=== PATIENT | female | born 1970 | race Caucasian/White ===

== ENCOUNTER 2016-04-28 10:54 | Emergency (ER) | payer OTHER ==
[~2016-04-28] VITALS: Ht 154.9 cm; Wt 75.0 kg
[~2016-04-28 10:54] MED LIST: ACET325C PO; AZEL205. NS; BENEDRYL PO; BUSP30TA2 PO; CETI10CA PO; DULO60CA42 PO; FLUT9.9S NS; KEN1O TP; KLO1T PO; LEVA0.6319 IH; LEVA15HF5 IH; LURA40TA3 PO; PANT40TA2 PO; SALM50DI IH; SUDAFED PO; TRAZ-118 PO; [UNRECOGNIZED DRUG - CODE] PO; immune globulin IV
[2016-04-28 10:56] VITALS: BP 155/84; PULSE 117; RESP 22; O2SAT 92
--- NOTE | 2016-04-28 11:00 | ED.REPORT ---
HPI-Extremity Problem Upper Date of Service Apr 28, 2016 ED Provider: History of Present Illness: slipped on stairs and cut right arm, has skin tear, long hx of prednisone use. Happened 20 minutes ago. primary care is dr. Hayes. asthma/copd. did not fall Nursing Notes Stated Complaint: RIGHT ARM LACERATION/FELL Chief Complaint: Extremity Trauma Nursing Notes Reviewed: Yes Allergies: Coded Allergies: Cephalosporins (Verified Allergy, Severe, ANAPHYLAXSIS, 01/19/16) ibuprofen (Verified Allergy, Severe, RASH BREATHING PROBLEMS, 01/19/16) iodine (Verified Allergy, Severe, BLISTERS, 01/19/16) latex (Verified Allergy, Severe, BLISTER/WELTS, 01/19/16) oxycodone (Verified Allergy, Severe, RASH, 01/19/16) TAPE (Verified Allergy, Intermediate, SKIN REACTION, 01/23/16) aspirin (Verified Allergy, Unknown, UNKNOWN, 01/19/16) imipenem (Verified Allergy, Unknown, UNKNOWN, 01/19/16) Serotonin 5HT-3 Antagonists (Verified Adverse Reaction, Severe, DILATED PUPILS, 01/19/16) Uncoded Allergies: SULFA (Allergy, Severe, ANAPHYLAXSIS- RESPIRATORY, 01/19/16) WOOL (Allergy, Severe, HIVES, 01/19/16) CILASTIN SODIUM (Allergy, Unknown, UNKNOWN, 01/19/16) NYLON (Allergy, Unknown, UNKNOWN, 01/19/16) Scheduled ([immune globulin]) IV [id number] ([Sudafed 12HOUR]) 120 MG PO BID Azelastine HCl (Astepro) 205.5 Mcg/0.137 Ml [place].pump 205.5 MCG NS BID Buspirone (Buspirone) 30 Mg Tablet 60 MG PO BID Cetirizine HCl (Zyrtec) 10 Mg Capsule 10 MG PO HS Duloxetine (Cymbalta) 60 Mg Capsule.dr 60 MG PO DAILY Lurasidone (Latuda) 40 Mg Tablet 40 MG PO DAILY Pantoprazole DR (Protonix) 40 Mg Tablet 40 MG PO BID Salmeterol Xinafoate (Serevent Diskus) 50 Mcg/Puff Inhaler 1,400 MCG IH BID Theophylline Anhydrous ER (Theophylline Anhydrous ER) 300 Mg Tab.er.12h 300 MG PO DAILY Trazodone (Trazodone) 100 Mg Tablet 200 MG PO HS Triamcinolone Acet (Triamcinolone Acetonide Ointment) 1 Applic/0.25 Gm Oint 1 APPLIC TP BID 0.05% Scheduled PRN ([Benedryl]) 25-50 MG PO Q4-6H PRN PRN PRN Acetaminophen (Acetaminophen) 325 Mg Capsule 3 CAPSULE PO BID PRN PRN PRN Clonazepam (Clonazepam) 1 Mg Tablet 1 MG PO TID PRN PRN For Anxiety Fluticasone Propionate (Flonase Allergy Relief) 50 Mcg/Actuation [place].susp 9.9 ML NS BID PRN PRN PRN Levalbuterol HCl (Xopenex) 0.63 Mg/3 Ml Vial.neb 0.63 MG IH q4-6h PRN PRN For Shortness of Breath Levalbuterol Tartrate (Xopenex Hfa) 15 Gm Hfa.aer.ad 1 PUFF IH Q4 PRN PRN For Shortness of Breath General Time Seen by MD: 10:59 Chief Complaint Forearm injury right Hx Obtained From: Patient Onset Occurred: Just prior to arrival Caused by: Accidental Context: Occurred at: Home injury Past Medical History Past Medical History Notes: Dr. Nielson, Dr. Garrett, [facility] Past Medical History Reports: Asthma, COPD Smoking History Never Smoker Social History Alcohol Use: "Social" Drug Use: Denies drug use Other Social History: Good social support, Occupation lives with , no work or school 04/28/2016 Ambulatory Status Independent Review of Systems Basic Review of Systems Eyes: Vision NL, No discharge ENT: Hearing NL, No pain, No nasal congestion, No pharyngeal pain Respiratory: No shortness of breath, No cough, No wheeze Cardiovascular: No chest pain, No dyspnea on exertion, No orthopnea, No parox noct dyspnea, No palpitations GI: No abdominal pain, No anorexia, No nausea, No vomiting : No dysuria, No frequency Hematologic: No bleeding, No bruising Endocrine: No cold intolerance, No heat intolerance, No weight gain, No weight loss Allergy / Immune: No allergy Psychiatric: Normal thought content Physical Exam Initial Vital Signs Vital Signs (First) Date Time Temp Pulse Resp B/P Pulse Ox O2 Delivery O2 Flow Rate FiO2 04/28/16 10:56 36.4 117 22 155/84 92 Room Air Initial VS: Reviewed, Vital signs abnormal General/Constitutional: Well-developed, Well-nourished Head / Eyes: Atraumatic, Normocephalic, PERRL ENT: Mucous membranes moist, Conjunctiva normal, No scleral icterus Neck: Supple, Non-tender, Full range of motion Respiratory: Breath sounds normal, Clear to auscultation, No respiratory distress Cardiovascular: Regular rate & rhythm, Heart sounds normal, Intact distal pulses Abdomen / GI: Soft, Non-tender, No guarding, No rebound, No distention Back: No CVA tenderness Lymphatic: No lymphadenopathy Lower Extremities: Vascular intact, Neuro intact, No swelling, No tenderness Skin: Warm, Dry, No cyanosis Neurologic: Alert, Oriented, Nonfocal Psychiatric: Mood/affect normal, Behavior normal, Normal thought content General/Constitutional: Awake, Alert, No acute distress Appearance / Presentation: Positive: Appears older than age Neck: Atraumatic, Supple, No meningismus, Full range of motion Respiratory / Chest: Atraumatic, Breath sounds NL, Breath sounds = bilat, No respiratory distress Cardiovascular: Heart rate NL, Regular rhythm, Heart sounds NL, No gallop 12 cm skin tear on inner aspect of right lower arm. No active bleeding. sensation intact distally cap refill less than 2 sec Procedures Laceration Management Laceration Management: steri strips placed at edges of wound to hold sutures in place Time: 11:30 Procedure Performed by: Allied health pract Consent / Setup / Site Prep: Informed consent provided, Consent from patient , Hand hygiene observed, Stand sterile technique Location of Wound: iright inner aspect of lower forearm Wound Length: 12 cm Local Anesthesia: Lidocaine 1%, 5cc (8), 27g needle Digital Block: No Wound Preparation: Normal saline Debridement: None Irrigation: 250 cc Undermining / Margins: Flaps aligned Repair Skin: ___ O (5), Nylon # Sutures - Skin: 10 Closure Layers: 1 Suture Technique: Simple, Mattress Post-Procedure / Complications: Antibiotic oint applied, Dressing applied, No complications, Condition improved, Tolerated procedure well, Patient stable Re-Eval/Medical Decision Med Decision/Clinical Course wound closed without difficulty Discharge & Departure Impression: Primary Impression: Skin tear of right forearm without complication Encounter type: initial encounter Qualified Code: S51.801A - Unspecified open wound of right forearm, initial encounter Disposition: Home Patient Instructions: Laceration (ED) Additional Instructions: The skin tear was quite extensive. It has been repaired with steri strips and sutures. It may take 3 or 4 weeks for the skin to heal. Apply bacitracin to the site of the laceration. Use a non stick dressing to cover the wound and wrap. You are up to date on your tdap. With allergies of cephalosporin and sulfa, doxycycline is a good alternative. Start 100 mg in the am and pm for 10 days. Return in 10 to 14 days for a wound recheck, sooner with any concerns. The sutures likely will not be able to be removed at that visit but a wound check is in order. Continue with your regular medication. You have been provided enough dressing supplies for a few days till [facility] can open. Please enjoy your new home. Referrals: Richard Cuhng MD (PCP) EDSupervising Provider for APC: Ronaldo Diggs DO copies to: Richard Chung MD, Sue ARNP Apr 28, 2016 11:00
[2016-04-28 12:27] VITALS: BP 145/78; PULSE 99; RESP 22; O2SAT 93
== END 2016-04-28 12:28 | disposition home or self-care (01) ==
LOC: SED 10:54
DX: S51.811A Laceration without foreign body of right forearm, initial encounter (principal); W18.43XA Slipping, tripping and stumbling without falling due to stepping from one level to another, initial encounter; Y93.01 Activity, walking, marching and hiking; Y99.8 Other external cause status; Y92.018 Other place in single-family (private) house as the place of occurrence of the external cause; J45.909 Unspecified asthma, uncomplicated; Z79.51 Long term (current) use of inhaled steroids; Z88.1 Allergy status to other antibiotic agents; Z88.6 Allergy status to analgesic agent; Z88.5 Allergy status to narcotic agent; Z88.2 Allergy status to sulfonamides

== ENCOUNTER 2016-11-20 18:09 | Observation (INO) | payer OTHER ==
[2016-11-19 17:40] VITALS: BP 135/90; PULSE 104; RESP 18; O2SAT 93
[~2016-11-20] VITALS: Ht 154.9 cm; Wt 75.1 kg
[2016-11-20 18:16] VITALS: BP 144/101; PULSE 109; RESP 18; O2SAT 95
--- NOTE | 2016-11-20 18:27 | ED.REPORT ---
HPI-Dyspnea / Wheezing Date of Service Nov 20, 2016 ED Provider: Stalin Sun MD Patient is a 46 year old female with a history of COPD and asthma as a consequence of repeated sinopulmonary infections, hypertension and chronic bronchitis who presents to the ED due to a low O2 sat reading of 89%. She states that she does feel a little more short of breath today compared to usual but she hasn't used her rescue inhaler today. Patient reports that her oxygen baseline is normally around 92%. The patient was originally seen at for right ear pain that has been present for 2 days. Patient denies chest pain, leg swelling, palpitations or diaphoresis. She has had a cough with green sputum for the past month and has been taking antibiotics. The patient states that she feels like her symptoms are improving. Nursing Notes Stated Complaint: SHORT OF BREATH Chief Complaint: Respiratory Complaints Nursing Notes Reviewed: Yes (Lumidigm, [employer]cr[employer] not reconciled) Allergies: Coded Allergies: Cephalosporins (Verified Allergy, Severe, ANAPHYLAXSIS, 01/19/16) ibuprofen (Verified Allergy, Severe, RASH BREATHING PROBLEMS, 01/19/16) iodine (Verified Allergy, Severe, BLISTERS, 01/19/16) latex (Verified Allergy, Severe, BLISTER/WELTS, 01/19/16) oxycodone (Verified Allergy, Severe, RASH, 01/19/16) TAPE (Verified Allergy, Intermediate, SKIN REACTION, 01/23/16) levofloxacin (Verified Allergy, Mild, Tendonitis, 11/20/16) aspirin (Verified Allergy, Unknown, UNKNOWN, 01/19/16) imipenem (Verified Allergy, Unknown, UNKNOWN, 01/19/16) Serotonin 5HT-3 Antagonists (Verified Adverse Reaction, Severe, DILATED PUPILS, 01/19/16) Uncoded Allergies: SULFA (Allergy, Severe, ANAPHYLAXSIS- RESPIRATORY, 01/19/16) WOOL (Allergy, Severe, HIVES, 01/19/16) CILASTIN SODIUM (Allergy, Unknown, UNKNOWN, 01/19/16) NYLON (Allergy, Unknown, UNKNOWN, 01/19/16) Scheduled ([immune globulin]) IV [id number] ([Sudafed 12HOUR]) 120 MG PO BID Azelastine HCl (Astepro) 205.5 Mcg/0.137 Ml [place].pump 205.5 MCG NS BID Buspirone (Buspirone) 30 Mg Tablet 60 MG PO BID Cetirizine HCl (Zyrtec) 10 Mg Capsule 10 MG PO HS Duloxetine (Cymbalta) 60 Mg Capsule.dr 60 MG PO DAILY Lurasidone (Latuda) 40 Mg Tablet 40 MG PO DAILY Pantoprazole DR (Protonix) 40 Mg Tablet 40 MG PO BID Salmeterol Xinafoate (Serevent Diskus) 50 Mcg/Puff Inhaler 1,400 MCG IH BID Theophylline Anhydrous ER (Theophylline Anhydrous ER) 300 Mg Tab.er.12h 300 MG PO DAILY Trazodone (Trazodone) 100 Mg Tablet 200 MG PO HS Triamcinolone Acet (Triamcinolone Acetonide Ointment) 1 Applic/0.25 Gm Oint 1 APPLIC TP BID 0.05% Scheduled PRN ([Benedryl]) 25-50 MG PO Q4-6H PRN PRN PRN Acetaminophen (Acetaminophen) 325 Mg Capsule 3 CAPSULE PO BID PRN PRN PRN Clonazepam (Clonazepam) 1 Mg Tablet 1 MG PO TID PRN PRN For Anxiety Fluticasone Propionate (Flonase Allergy Relief) 50 Mcg/Actuation [place].susp 9.9 ML NS BID PRN PRN PRN Levalbuterol HCl (Xopenex) 0.63 Mg/3 Ml Vial.neb 0.63 MG IH q4-6h PRN PRN For Shortness of Breath Levalbuterol Tartrate (Xopenex Hfa) 15 Gm Hfa.aer.ad 1 PUFF IH Q4 PRN PRN For Shortness of Breath General Time Seen by MD: 18:23 Chief Complaint Shortness of breath Hx Obtained From: Patient Arrived By: Walk-in Sudden in Onset?: Yes Onset Occurred: 5 - 8 hours ago Symptom Duration: Since onset Severity: Current: No pain currently Recent Healthcare: No recent hospitalization, Recent doctor visit Similar Sx Previous: Yes Past Medical History Past Medical History Notes: Dr. Nielson, Dr. 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 Breast CA (DCIS), status post lumpectomy and radiation History of chronic major depression General anxiety disorder GERD History of struck sleep apnea Reports: Asthma, COPD Past Surgical History Port-A-Cath Hysterectomy Abdominal and groin hernia repairs Tonsillectomy Sinus surgery as child Smoking History Never Smoker Social History Alcohol Use: "Social" Drug Use: Denies drug use Other Social History: Occupation lives with , no work or school 04/28/2016 Ambulatory Status Independent Review of Systems Constitutional: Denies: Chills, Fever Ears / Nose / Throat: Reports: Earache right Respiratory: Reports: Prod cough, green, Shortness of breath Cardiovascular: Denies: Chest pain, Palpitations Musculoskeletal: Denies: Extremity swelling Skin: Denies Diaphoresis, Denies Itching, Denies Rash Complete sys rev & neg: except as marked. GI: Denies: Nausea Neurologic: Denies: Lightheaded, Numbness, Weakness Physical Exam Initial Vital Signs Vital Signs (First) Date Time Temp Pulse Resp B/P Pulse Ox O2 Delivery O2 Flow Rate FiO2 11/20/16 18:16 36.4 109 18 144/101 95 Nasal Cannula 3 Initial VS: Reviewed General/Constitutional: Awake, Alert appears cushingoid Neck: Atraumatic, Supple Respiratory / Chest: Atraumatic, No respiratory distress few scattered wheezes diminished breath sounds not severely dyspneic Cardiovascular: Regular rhythm, Heart sounds NL Heart Rate / Rhythm: Positive: Tachycardia (patient states that she has baseline tachycardia) ENT: Atraumatic, Airway patent, Mucous membranes moist, Tympanic membs NL Lower Extremity / Pelvis / MS: Atraumatic, Inspection NL, No edema Skin: Atraumatic, Color NL, No rash, Warm, Dry Neurologic: Oriented X3, Speech NL, No motor deficits, No sensory deficits Psychiatric: Affect NL, Mood NL Interpretation & Diagnostics Lab Results Interpretation Result Diagram: 11/20/16193911/20/161939 Test 11/20/16 15:34 11/20/16 19:40 D-Dimer 0.70mg/L FEU (<0.50) White Blood Count 12.7th/mm3 (3.8-10.1) Red Blood Count 4.69mil/mm3 (3.90-5.20) Hemoglobin 14.7g/dL (12.0-15.6) Hematocrit 45.7% (35.0-46.0) Mean Corpuscular Volume 97.4fL (81-100) Mean Corpuscular Hemoglobin 31.3pg (27.0-35.0) Mean Corpuscular Hemoglobin Concent 32.2% (32.0-37.0) Red Cell Distribution Width 15.6% (12.3-15.4) Platelet Count 502bil/L (150-400) Neutrophils (%) (Auto) 66.7% (40-74) Lymphocytes (%) (Auto) 20.8% (14-46) Monocytes (%) (Auto) 11.0% (4-12) Eosinophils (%) (Auto) 0.7% (0-5) Basophils (%) (Auto) 0.2% (0-3) Sodium Level 136mEq/L (134-144) Potassium Level 4.0mEq/L (3.5-5.2) Chloride Level 98mEq/L (97-108) Carbon Dioxide Level 24mmol/L (18-29) Blood Urea Nitrogen 14mg/dL (6-24) Creatinine 0.59mg/dL (0.57-1.00) Estimat Glomerular Filtration Rate 156mL/min (>59) Glucose Level 102mg/dL (60-99) Lactic Acid Level 2.0mmol/L (0.4-2.0) Calcium Level 9.2mg/dL (8.5-10.1) Total Bilirubin 0.2mg/dL (0.0-1.2) Aspartate Amino Transf (AST/SGOT) 27U/L (0-50) Alanine Aminotransferase (ALT/SGPT) 31U/L (0-32) Alkaline Phosphatase 86U/L (25-150) Troponin T < 0.010ug/L (0.0-0.011) Total Protein 7.9g/dL (6.4-8.4) Albumin 3.8g/dL (3.4-5.0) Lab Results Interpretation: CBC mild leukocytosis CMP normal D-dimer positive including age-adjusted ECG Interpretation ECG Interpretation: sinus tachycardia, rate 106 no ischemic changes tachycardia is new compared to prior EKG from 2006 Time: 18:59 Interpreted by: ED physician X-Ray Chest Interpretation Chest Xray Interpretation: IMPRESSION: No acute disease. No interval change Dictated by: Abraham Montoya M.D. on 11/20/2016 at 19:05 Approved by: Abraham Montoya M.D. on 11/20/2016 at 19:05 View: Portable, 1 view Interpretation / Wet Read by: Interpret - Radiologist Re-Eval/Medical Decision Med Decision/Clinical Course This is a pleasant 46-year-old female with chronic lung disease and immunosuppression on meropenem for the past month getting daily infusions, went to urgent care for some ear fullness-not pain-and was noted to have an O2 sat of 89% on room air, which is lower than her baseline of 1993%, so she was sent to the ED for further evaluation. The patient denies a change in baseline shortness of breath, denies fevers, chills, chest pain, pleuritic discomfort. Urgent care was concerned regarding the possibility of a DVT/PE as the patient has been immobilized from a tendinopathy attributed to fluoroscopy quinolone use , just discontinue the boot 2 days ago. She did note she had some swelling in the legs about 6 weeks ago, but does not have any now. She does not have a previous history of DVT or PE. She has no additional complaints. She appears chronically short of breath, mildly Cushinoid from history of steroid use-on the she is not on steroids at the moment. She is tachycardic at 1:15 as well, and she claims she baseline heart rates around 105. She is not febrile. Chest x-ray was read by the radiologist as no change. Blood work reveals a nonspecific leukocytosis. Troponins normal. I did not draw cultures as the patient's on IV meropenem. There was a lab delay on the D dimer, but it is ultimately positive. This point with the patient's underlying lung disease, risk factors plan was a CT angiogram-but it turns out the patient has a mild iodine allergy was itching and hives. Her for, given the hypoxic, tachycardic patient with risk factors-the plan is initiation of the protocol by radiology for patients with allergic reactions, which read a 13 hour delay until the CT scan. The plan is empiric treatment with a dose of Lovenox, initiation of the allergy protocol, and observation admission overnight to the CT can be performed in the morning. Source of Hx: Old records Re-Evaluation/Progress : Time of Eval: 22:18 Re-Evaluation/Progress Note: Discussed results and plan for admit. Patient understands and agrees to the plan. All questions were addressed. Consultation : Referral / Consult Name: Tl Hitchcock MD Consulted With: Hospitalist Call Returned at: 22:48 Automatic Vulcanizing Operator: Agrees with eval, Agrees with plan, Accepts admit Counseled Regarding: Diagnosis, Lab results, Need for admission Discharge & Departure Impression: Primary Impression: Hypoxia Additional Impressions: Elevated d-dimer Allergy to iodine Disposition: Home Discharge Condition All VS Reviewed: Yes Condition: Stable Referrals: Richard Chung MD (PCP) Scribe Attestation Portions of this note were transcribed by Cande Zambrano. I, Dr. Sun personally performed the history, physical exam and medical decision-making; I reviewed and confirmed the accuracy of the information in the transcribed note. Signed by: Cande Aviles, 11/20/16 copies to: Richard Chung MD, Matthew F MD Nov 20, 2016 18:27 Shital Zambrano Nov 20, 2016 18:36
[2016-11-20] MEDS ORDERED: Albuterol 2.5 mg/3 mL Inhalation Solution NEB ONE (18:35)
[2016-11-20 18:51] VITALS: PULSE 106; RESP 22; O2SAT 90
--- NOTE | 2016-11-20 19:07 | DRSVH ---
PROCEDURE: X-RAY CHEST ONE VIEW, PORTABLE ([id number]) INDICATIONS: sob TECHNIQUE: One view of the chest was acquired. COMPARISON: [facility], CR, XR CHEST 2VW, 08/01/2016, 19:29. FINDINGS: Surgical changes and devices: Right chest port with its tip projecting in the mid SVC. Lungs and pleura: No pleural effusions or pneumothorax. Lungs are clear. Elevation of the right he midiaphragm. Scattered scarring/atelectasis. Mediastinum: Mediastinal contours appear normal. Heart size is normal. Bones and chest wall: No suspicious bony lesions. Overlying soft tissues appear unremarkable. IMPRESSION: No acute disease. No interval change Dictated by: Abraham Montoya M.D. on 11/20/2016 at 19:05 Approved by: Abraham Montoya M.D. on 11/20/2016 at 19:05
[2016-11-20 19:45] LABS: BASOPHILS % (AUTO) 0.2 % (0-3); EOSINOPHILS % (AUTO) 0.7 % (0-5); Mean Corpuscular Hemoglobin 31.3 pg (27.0-35.0); Mean Corpuscular Volume 97.4 fL (81-100); NEUTROPHILS % (AUTO) 66.7 % (40-74); Platelet Count 502 bil/L (150-400)
[2016-11-20] MEDS ORDERED: MethylprednisoLONE Sodium Succinate 62.5 mg/mL 2 mL Inj IVPUSH ONE (22:25)
[2016-11-20 22:55] VITALS: BP 120/88; PULSE 110; RESP 24; O2SAT 92
[2016-11-20] MEDS ORDERED: Ondansetron 2 mg/mL 2 mL Inj IVPUSH PRN (22:55)
[2016-11-20] MEDS ORDERED: Alum-Mag Hydrox-Simeth 30 mL Suspension PO PRN ×2 (22:55→23:10)
--- NOTE | 2016-11-20 23:05 | NUR ---
ADMIT Report received from Lore in ED. Pt arrived on unit at 2245. Pt able to ambulate independently to room. Reports little to no SOB, was on 2L before on floor. Cpox applied to pt. Pharmacist in room to complete medication reconciliation. Continuing care.
[2016-11-20] MEDS ORDERED: Polyethylene Glycol (PEG) 17 Gm Powder PO PRN (23:10)
[2016-11-20 23:25] LABS: APPEARANCE,URINE CLEAR (CLEAR,HAZY); COLOR,URINE YELLOW (YELLOW); PH,URINE 5.5 (5.0-8.0)
[2016-11-20 23:26] LABS: OCCULT BLOOD,URINE NEGATIVE (NEGATIVE); UROBILINOGEN,URINE NORMAL (NORMAL)
[2016-11-20] MEDS ORDERED: ALEN70TA2 PO (23:30)
[2016-11-20] MEDS ORDERED: TIOT18CA3 IH (23:30)
[2016-11-20] MEDS ORDERED: FLUT12AE10 IH (23:30)
[2016-11-20] MEDS ORDERED: MERO500V2 IV (23:30)
[2016-11-20] MEDS ORDERED: OLOP2.5D BOTH_EYES (23:30)
[2016-11-20] MEDS ORDERED: ZIT250 PO (23:30)
[2016-11-20] MEDS ORDERED: ACET-171 PO (23:30)
[2016-11-20 23:40] VITALS: BP 149/95; PULSE 102; RESP 20; O2SAT 92
[2016-11-21] VITALS (9 sets, daily range): BP systolic 118–142; BP diastolic 75–90; PULSE 76–115; RESP 16–24; O2SAT 92–97
[2016-11-21] MEDS ORDERED: Meropenem 500 mg Inj IV SCH (00:35)
[2016-11-21] MEDS ORDERED: diphenhydrAMINE 50 mg Capsule PO ONE ×2 (00:45→10:50)
--- NOTE | 2016-11-21 00:53 | NUR ---
BP On admit, BP was 149/95. Pt states BP in normally not that high and does not take BP medications. Spoke with Dr. Fernandez about BP. He said no PRN medications for now because pt was previously low BP, but will trend BP and contact provider if BP continues to be high. Will comply. Hourly rounding.
--- NOTE | 2016-11-21 00:56 | PCM.HPMED ---
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 She was at urgent care for right ear pain that has been present for 2 days, when they noticed O2 sat of 89%, lower than her baseline of 92%. She states that she does feel a little more short of breath today compared to usual but she hasn't used her rescue inhaler today. Of note, the patient has been immobilized from a tendinopathy secondary to quinolone use, which was discontinued about 2 days ago. She mentions she did have swelling in her legs about 6 weeks ago, but no longer has it. She has no prior history of DVT or PE. The patient denies fevers, chills, chest pain, pleuritic discomfort. She has had a cough with green sputum for the past month and has been taking antibiotics. The patient states that she feels like her symptoms are improving. In the ED she was found to be tachycardic with a pulse of 115, though she reports she typically at 105 bpm. WBC 12.7 on meropenem. D-dimer elevated at 0.7 , troponin normal. Chest x-ray was found to be unremarkable. CTA ordered, but patient iodine allergy with itching and hives. Review of Systems: A comprehensive review of systems was conducted with the patient and found to be negative except as above in the History of Present Illness. Allergies Coded Allergies: Cephalosporins (Verified Allergy, Severe, ANAPHYLAXIS, 11/21/16) ibuprofen (Verified Allergy, Severe, RASH BREATHING PROBLEMS, 01/19/16) iodine (Verified Allergy, Severe, HIVES, 11/21/16) latex (Verified Allergy, Severe, BLISTER/WELTS, 01/19/16) oxycodone (Verified Allergy, Severe, RASH, 01/19/16) TAPE (Verified Allergy, Intermediate, SKIN REACTION, ITCHY, 11/21/16) levofloxacin (Verified Allergy, Mild, Tendonitis, 11/20/16) aspirin (Verified Allergy, Unknown, ANAPHYLAXIS, 11/21/16) imipenem (Verified Allergy, Unknown, UNKNOWN, 01/19/16) Serotonin 5HT-3 Antagonists (Verified Adverse Reaction, Severe, DILATED PUPILS, 01/19/16) Uncoded Allergies: SULFA (Allergy, Severe, ANAPHYLAXSIS- RESPIRATORY, 01/19/16) WOOL (Allergy, Severe, HIVES, 01/19/16) CILASTIN SODIUM (Allergy, Unknown, HIVES, 11/21/16) NYLON (Allergy, Unknown, ITCHING, 11/21/16) Home Medications Scheduled ([immune globulin]) IV [id number] ([Sudafed 12HOUR]) 120 MG PO BID Azelastine HCl (Astepro) 205.5 Mcg/0.137 Ml [place].pump 205.5 MCG NS BID Buspirone (Buspirone) 30 Mg Tablet 60 MG PO BID Cetirizine HCl (Zyrtec) 10 Mg Capsule 10 MG PO HS Duloxetine (Cymbalta) 60 Mg Capsule.dr 60 MG PO DAILY Lurasidone (Latuda) 40 Mg Tablet 40 MG PO DAILY Pantoprazole DR (Protonix) 40 Mg Tablet 40 MG PO BID Salmeterol Xinafoate (Serevent Diskus) 50 Mcg/Puff Inhaler 1,400 MCG IH BID Theophylline Anhydrous ER (Theophylline Anhydrous ER) 300 Mg Tab.er.12h 300 MG PO DAILY Trazodone (Trazodone) 100 Mg Tablet 200 MG PO HS Triamcinolone Acet (Triamcinolone Acetonide Ointment) 1 Applic/0.25 Gm Oint 1 APPLIC TP BID 0.05% Scheduled PRN ([Benedryl]) 25-50 MG PO Q4-6H PRN PRN PRN Acetaminophen (Acetaminophen) 325 Mg Capsule 3 CAPSULE PO BID PRN PRN PRN Clonazepam (Clonazepam) 1 Mg Tablet 1 MG PO TID PRN PRN For Anxiety Fluticasone Propionate (Flonase Allergy Relief) 50 Mcg/Actuation [place].susp 9.9 ML NS BID PRN PRN PRN Levalbuterol HCl (Xopenex) 0.63 Mg/3 Ml Vial.neb 0.63 MG IH q4-6h PRN PRN For Shortness of Breath Levalbuterol Tartrate (Xopenex Hfa) 15 Gm Hfa.aer.ad 1 PUFF IH Q4 PRN PRN For Shortness of Breath PMH History of common variable immunodeficiency, on IVIG infusions twice a month, Port-A-Cath COPD/asthma as a consequence repeated sinopulmonary infections 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 Breast CA (DCIS), status post lumpectomy and radiation History of chronic major depression General anxiety disorder GERD History of sleep apnea Reports: Asthma, COPD Surgical History Port-A-Cath Hysterectomy Abdominal and groin hernia repairs Tonsillectomy Sinus surgery as child Family History Father: Diabetes, Hypertension, Heart disease Social History Hx Alcohol Use: No Hx Substance Use: No Hx Tobacco Use: No Smoking Status: Never Smoker Exam Vital Signs Vital Sign - Last Date Time Temp Pulse Resp B/P Pulse Ox O2 Delivery O2 Flow Rate FiO2 11/20/16 22:55 36.8 110 24 120/88 92 Nasal Cannula 2 Exam General: No acute distress, well-developed, well-nourished, appropriately interactive HEENT: Normocephalic, atraumatic. External ears without defect. Anicteric sclerae, moist conjunctivae Neck: Supple with full range of motion. No jugular venous distension. No bruits. No lymphadenopathy or thyromegaly. Cardiovascular: tachycardic, normal rhythm with no murmurs, rubs, or gallops appreciated Pulmonary: Dimished breath sounds, no wheezes, rhonchi or rales. Normal respiratory effort with no use of accessory muscles. Abdomen: Bowel tones present. Soft, nontender, nondistended. No hepatosplenomegaly or masses appreciated. Extremities: No clubbing, cyanosis, edema, or lymphadenopathy appreciated. Skin: Normal temperature, turgor, and texture; no rash, ulcers, or subcutaneous nodules appreciated. Neurological: Cranial nerves grossly intact. Normal muscle strength, tone, and bulk. Reflexes, coordination, and sensory function within normal limits. No known gait impairment. Psychiatric: Normal mood and affect. Alert and oriented to person, place, and time. Lab and Diagnostics Labs Item Value Date Time Troponin T < 0.010 ug/L 11/20/161939 Alkaline Phosphatase 86 U/L 11/20/161939 Alanine Aminotransferase (ALT/SGPT) 31 U/L 11/20/161939 Aspartate Amino Transf (AST/SGOT) 27 U/L 11/20/161939 Lactic Acid Level 2.0 mmol/L 11/20/161939 D-Dimer 0.70 mg/L FEU H 11/20/16 1534 Result Diagram: 11/20/16193911/20/161939 X-Rays, CTs and MRIs PROCEDURE: X-RAY CHEST ONE VIEW, PORTABLE ([id number]) IMPRESSION: No acute disease. No interval change Dictated by: Abraham Montoya M.D. on 11/20/2016 at 19:05 12-lead ECG Sinus tachycardia . 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 Hypoxia, Present on Admission, Active Likely secondary to COPD exacerbation. However differential includes pulmonary embolism. - Iodine allergy protocol initiated, then CTA - Patient recieved methylprednisolone at 2240 on 11/20/16 in ED. Patient to recieve two more doses of prednisone. First dose at 0440, next one at 1040. Patient will need contrast at 1140 for CTA. Imaging has been ordered. - Day team to discuss with radiology timing of around 1140. Common Variable Immunodeficiency, chronic - Patient on daily meropenem will continue Chronic JOSELINE; stable - Usually on BiPAP, ordered Patient Status: Patient is admitted under observation status with expected length of stay less than 2 midnights due to severity of presenting symptoms and risk of adverse event. Code Status: Full Code VTE Prophylaxis: Sub-Q Enoxaparin VTE Mechanical Devices: Intermittant Pneumatic CD Resuscitation Status: CPR: Attempt Resuscitation Attending Statement The patient was seen and examined together with Dr. Fernandez on 11/20 and I agree with the history, exam and plan as outlined in the note above. Tl Fernandez DO Nov 20, 2016 23:15 Tl Hitchcock MD Nov 21, 2016 01:28
[2016-11-21] MEDS: AZELASTINE NASAL SPRAY NASAL SCH ×3 (02:05→20:30)
[2016-11-21] MEDS: BusPIRone 15 mg Dividose Tablet PO SCH ×3 (02:08→20:48)
[2016-11-21] MEDS: OLOPATADINE BOTH_EYES SCH ×2 (02:20→08:30)
[2016-11-21] MEDS ORDERED: Meropenem Inj 1,000 MG in 0.9% Sodium Chloride 100 ML IV SCH (03:00)
[2016-11-21] MEDS ORDERED: Meropenem Inj 1,000 MG in 0.9% Sodium Chloride 50 ML IV SCH (03:00)
[2016-11-21] MEDS ORDERED: 0.9% Sodium Chloride 250 ML ONE (04:28)
[2016-11-21] MEDS: predniSONE 20 mg Tablet PO SCH ×2 (04:46→11:01)
--- NOTE | 2016-11-21 04:56 | NUR ---
BUSPAR Gave pt home dose of buspar, 2 pills at 30 mg. Upon return for admin of prednisone, noticed 1 pill of buspar at bedside. Pt stated she only takes 1 pill of 30 mg at home. Told pt our pharmacy has different mg in some pills, pt understands the doses are the same. Pt feels more comfortable to skip the 15mg tablet and wait for morning dose.
[2016-11-21] MEDS ORDERED: Albuterol 2.5 mg/3 mL Inhalation Solution NEB PRN (07:00)
[2016-11-21] MEDS ORDERED: Theophylline 100 mg ER12 Tablet PO SCH (08:30)
[2016-11-21] MEDS: Pantoprazole 40 mg ER24 Tablet PO SCH (08:39)
[2016-11-21] MEDS: Fluticasone 100 mCg Inhaler INHALATION SCH ×2 (08:39→20:43)
[2016-11-21] MEDS: Tiotropium 18mcg/Cap 5 Capsule Inhaler Kit INHALATION SCH (08:40)
[2016-11-21] MEDS: Salmeterol 50 mcg/Puff 28 Inhalation Diskus INHALATION SCH ×2 (08:40→20:42)
[2016-11-21] MEDS: Fluticasone 0.05% 15 Spray/2 Gm 16 Gm Nasal Spray NASAL SCH ×2 (08:40→20:42)
[2016-11-21] MEDS: DULoxetine 30 mg DR Capsule PO SCH (08:42)
[2016-11-21] MEDS: THEOPHYLLINE 200 MG PO SCH (09:09)
--- NOTE | 2016-11-21 09:21 | NUR ---
Social Work- Brief Note/ Readiness for Discharge Data: EMR reviewed. Pt is on day 1 of hospitalization for hypoxia per H&P. Pt's insurance is [employer]. Pt's PCP is Richard Chung MD. SW met with pt at bedside regarding discharge plan, SW role explained. Pt alert and oriented x3. Pt is on O2 here in the hospital, no O2 at baseline. Pt resides in [place] with her spouse where she is independent at baseline. Pt's capacity for self-care assessed. Pt [place] no DME at base and [place]. Pt has no O2 at home but has a history of O2 through [facility]. Pt has no DPOA and declined information at bedside. Pt is likely to discharge home with spouse to transport via POV. No concerns for care identified. SW will continue to follow. Assessment: Pt who is independent at baseline. Plan: Pt is likely to discharge home with spouse to transport via POV. No concerns for care identified. SW will continue to follow. MUMTAZ Quiros Addendum: 11/21/16 at 1136 by FRANCISCO CHRISTOPHER ELIZABETH informed that pt is currently open with [facility] for IV Meropenem and port care at home. informed and will write resumption orders in discharge instructions. Pt is likely to discharge today. T/C to [facility] regarding pt, left message. SW will fax D/C instructions to [facility] when provided. MUMTAZ Quiros
--- NOTE | 2016-11-21 13:38 | DRSVH ---
PROCEDURE: CT ANGIO CHEST PULMONARY EMBOLISM ([id number]) INDICATIONS: SOB, hypoxia, Dimer + TECHNIQUE: After the administration of intravenous contrast, 2 mm thick sections acquired from the pulmonary api naila to the posterior costophrenic angles. 3-dimensional maximum intensity projection (MIP) coronal a nd sagittal reformats were then acquired through the thorax. For radiation dose reduction, the follo wing was used: automated exposure control, adjustment of mA and/or kV according to patient size. COMPARISON: [facility], CR, XR CHEST 1VW (PORTABLE), 11/20/2016, 18:36. FINDINGS: Image quality: There is mild motion artifact limiting evaluation. Pulmonary arteries: Pulmonary arteries are normal in size, and demonstrate no intraluminal filling d efects to suggest central pulmonary embolism. Evaluation of the subsegmental branches is limited by motion artifact. Lungs and pleura: Evaluation is limited due to motion artifact. There are a few scattered tiny nodu les including a right upper lobe nodule measuring 7 mm on series 5 image 16. Additional smaller righ t upper lobe nodules include a 5 mm nodule on image 14, right 3 mm nodule on image 17, and a 5 mm nod ule in image 19. There is bibasilar bronchiectasis and mild bronchial wall thickening with scarring in the lower lobes and inferior left lingula. No pleural effusions or pneumothorax. Central and per ipheral airways are patent. Mediastinum: Heart size is normal, without pericardial effusion. No mediastinal or hilar adenopathy . Thoracic aorta is normal in caliber and enhancement. Esophagus is normal in caliber, without hiat al hernia. Bones and chest wall: No suspicious bony lesions. Ribs and thoracic spine appear intact throughout. Thyroid gland demonstrates no discrete nodules, with evaluation slightly limited by beam hardening artifact. No axillary or supraclavicular adenopathy. There are multiple surgical clips in the right axilla with a dense collection measuring approximately 4.1 x 2.6 cm likely representing a a hematoma or seroma. Abdomen: Visualized upper abdomen demonstrates a small enhancing focus within the spleen adjacent to the hilum measuring up to 8 mm. IMPRESSION: 1. No central pulmonary embolism with evaluation of subsegmental branches limited due to motion evelia fact. 2. Multiple scattered pulmonary nodules predominantly within the right upper lobe. The findings are nonspecific but suggestive of an infectious or inflammatory process. Recommend a short term followu p repeat study in 3-6 months to demonstrate resolution. 3. Postsurgical changes in the right axilla with associated dense collection likely representing a h ematoma or seroma. Recommend correlation with clinical exam. 4. Small enhancing hypervascular lesion in the spleen is nonspecific and may represent a hemangioma. Recommend attention on followup. Dictated by: Jasvir Rizvi M.D. on 11/21/2016 at 13:27 Approved by: Jasvir Rizvi M.D. on 11/21/2016 at 13:37
--- NOTE | 2016-11-21 15:00 | NUR ---
Activity Patient independent in room, gait steady, reports no pain with activity. C/O headache, Tylenol ordered for pain.
[2016-11-21] MEDS: Meropenem Inj 1,000 MG in 0.9% Sodium Chloride 100 ML IV SCH (15:35)
[2016-11-21] MEDS ORDERED: HepLOK Flush 100 unit/mL 5 mL Inj IVFLUSH PRN (15:35)
[2016-11-21] MEDS ORDERED: Sodium Chloride LOK Flush 10 mL Syringe IVFLUSH PRN ×2 (15:35)
[2016-11-21] MEDS: 0.9% Sodium Chloride 250 ML IV SCH (15:36)
[2016-11-22] VITALS (7 sets, daily range): BP systolic 118–144; BP diastolic 72–91; PULSE 76–110; RESP 15–20; O2SAT 90–93
--- NOTE | 2016-11-22 | PCM.PNMED ---
Subjective Date of Service Nov 21, 2016 Subjective Patient is seen and examined. She states that she used to be on home BiPAP with oxygen and is just a few months ago she discontinued oxygen as it making a lot of noise. She states that she has been using BiPAP for at least a few year , she recalls initially obtaining it from a doctor she used to see prior to Dr. Montes. She states that she is breathing better on 1.5 L of supplemental oxygen. Discussed the CTA results, she has no concerns. She does not have a sofa inspector, she gets all her pulmonary medications from her graphic arts instructor Dr. Montes. Simon prescribed her with IV meropenem due to concern for pneumonia that was diagnosed month ago Exam Vital Signs Vital Sign - Last Date Time Temp Pulse Resp B/P Pulse Ox O2 Delivery O2 Flow Rate FiO2 11/21/16 23:16 115 11/21/16 20:20 36.7 18 142/82 95 Nasal Cannula 1.00 Intake and Output 11/20/16 11/20/16 11/21/16 Cumulative From/Thru 15:00 23:00 07:00 11/20/16 18:16 - 11/20/16 23:40 Output Total 100 ml 100 ml Balance -100 ml -100 ml Output Urine Total 100 ml 100 ml Exam General: No acute distress, well-developed, well-nourished, appropriately interactive HEENT: Normocephalic, atraumatic. Neck: Supple with full range of motion. No jugular venous distension. Cardiovascular: Normal rate and rhythm, no S3-S4 sounds Pulmonary: Dimished breath sounds, crackles are present on the right mid and lower sections Abdomen: Bowel tones present. Soft, nontender, nondistended. No hepatosplenomegaly or masses appreciated. Extremities: No clubbing, cyanosis, edema, or lymphadenopathy appreciated. Skin: Normal temperature Neurological: No focal deficit. Psychiatric: Normal mood and affect. Alert and oriented to person, place, and time. IVs and Medications IV Fluids None Medications Reviewed: Medications were reviewed in detail Lab and Diagnostics Result Diagram: 11/20/16193911/20/161939 X-Rays, CTs and MRIs PROCEDURE: X-RAY CHEST ONE VIEW, PORTABLE ([id number]) IMPRESSION: No acute disease. No interval change Dictated by: Abraham Montoya M.D. on 11/20/2016 at 19:05 12-lead ECG Sinus tachycardia . 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 Hypoxia, Present on Admission, Active Likely secondary to COPD. pulmonary embolism is ruled out with the chest CTA on 11/21. Her hypoxia does not appear to be real impressive as she was saturating 89% at the urgent care, she denies recent colds, coughs. She is currently being treated with meropenem IV as her graphic arts instructor thought that she may have had pneumonia based on her clinical presentation, though first chest x-ray was negative in July. About to completed a month of meropenem. - Iodine allergy protocol initiated, then CTA - Patient recieved methylprednisolone at 2240 on 11/20/16 in ED. patient received 2 more doses at 0440, next one at 1040. - Patient has received a CTA as planned, she denies any side effects from the iodine contrast: "Multiple scattered pulmonary nodules predominantly within the right upper lobe. The findings are nonspecific but suggestive of an infectious or inflammatory process. Recommend a short term followup repeat study in 3-6 months to demonstrate resolution. Small enhancing hypervascular lesion in the spleen is nonspecific and may represent a hemangioma. Recommend attention on followup. " Common Variable Immunodeficiency, chronic - Patient on daily meropenem will continue -- Patient will need "continue IV antibiotics with [facility], ertapenem 1 g every 8H" the time of discharge Chronic JOSELINE; stable - Usually on BiPAP, ordered - Patient is not using her BiPAP with oxygen as ordered. She is currently feeling more comfortable on oxygen here. -- I discussed the case with the sofa inspector Dr. Ward who kindly agreed to see the patient and provide recommendations in the a.m. Incidental hemangioma on chest CT, present on admission -- We will recommend follow-up CT by PCP at the time of discharge Incidental finding of lung nodules on chest CT, present on admission -- We will recommend follow-up CT by PCP at the time of discharge Patient Status: Patient is admitted under observation status with expected length of stay less than 2 midnights due to severity of presenting symptoms and risk of adverse event. Patient will be discharged home 7/28, after pulmonology. Reports that recommendations regarding both the pulmonary nodules and a BiPAP Code Status: Full Code VTE Prophylaxis: Sub-Q Enoxaparin VTE Mechanical Devices: Intermittant Pneumatic CD Resuscitation Status: CPR: Attempt Resuscitation Time spent 30 min Suyapa Byrd DO Nov 22, 2016 00:00
[2016-11-22] MEDS: Meropenem Inj 1,000 MG in 0.9% Sodium Chloride 100 ML IV SCH ×3 (00:29→16:33)
--- NOTE | 2016-11-22 06:12 | NUR ---
Pt. D/C today Patient is to be discharged today. VSS and she is in good spirits ready to go home. She slept all night without issue.
[2016-11-22] MEDS: DULoxetine 30 mg DR Capsule PO SCH (07:32)
[2016-11-22] MEDS: Pantoprazole 40 mg ER24 Tablet PO SCH (07:32)
[2016-11-22] MEDS: BusPIRone 15 mg Dividose Tablet PO SCH (07:32)
[2016-11-22] MEDS: THEOPHYLLINE 200 MG PO SCH (07:32)
[2016-11-22] MEDS: Tiotropium 18mcg/Cap 5 Capsule Inhaler Kit INHALATION SCH (07:33)
[2016-11-22] MEDS: Fluticasone 100 mCg Inhaler INHALATION SCH (07:34)
[2016-11-22] MEDS: Fluticasone 0.05% 15 Spray/2 Gm 16 Gm Nasal Spray NASAL SCH (07:34)
[2016-11-22] MEDS: Salmeterol 50 mcg/Puff 28 Inhalation Diskus INHALATION SCH (07:34)
[2016-11-22] MEDS: 0.9% Sodium Chloride 250 ML IV SCH (07:35)
[2016-11-22] MEDS: OLOPATADINE BOTH_EYES SCH (07:37)
[2016-11-22] MEDS: AZELASTINE NASAL SPRAY NASAL SCH (07:37)
--- NOTE | 2016-11-22 13:10 | CONS ---
[address] [address] CONSULTATION REPORT PATIENT: KAMRON YOUNGER : 1970 MR#: [id number] ADMIT: 11/20/2016 JOB ID: [id number] DATE OF SERVICE: 11/21/2016 REQUESTING PHYSICIAN: Suyapa Byrd DO REASON FOR CONSULTATION: 1. BiPAP evaluation. 2. Pulmonary nodules. HISTORY OF PRESENT ILLNESS: The patient is a 46-year-old female with a rather complicated pulmonary history. In any case, she presented to the [facility] because of some discomfort in her ear. The ear was apparently fine, however she was found to have an O2 saturation of 89% on room air. She was therefore sent to the emergency department, where she was admitted for evaluation of the hypoxemia. The patient's pulmonary history dates back to her childhood. She was diagnosed with asthma. Used inhalers at that point. Apparently did reasonably well until the last few years. Subsequently she was diagnosed with bronchiectasis, combined immunodeficiency, asthma, and sleep apnea. With regard to sleep apnea, she has been on BiPAP for a few years. In July of this year she moved to a new home. In her new home the oxygen concentrator needs to be by her bed, whereas in the old home she was able to put the oxygen concentrator in the adjoining room. She says the oxygen concentration is too loud for her to sleep and therefore for the past few months she has used the BiPAP without supplemental oxygen. It is a home BiPAP and she does not know the settings. Apparently it has worked out reasonably well for her, however. With regard to her pulmonary status. She has had bronchiectasis for maybe the last six years or perhaps longer. She develops a respiratory tract infection maybe twice a year. More recently she has required use of IV meropenem at home to control the situation. Recognizes stenotrophomonas as a possible pathogen but does not recognize many of the others. However, in July she developed a respiratory tract infection and was treated with oral antibiotics. It did not improve her cough productive of green sputum and her mild dyspnea. However was put on meropenem six weeks ago. Has noted marked improvement in her respiratory status and she is pretty much back to baseline. Apparently has a week or so of meropenem left. The patient also indicates that maybe 2 or 3 times a year she has to have a course of prednisone. Usually starts at about 60 mg and is tapered over a week to two weeks, never longer. The patients asthma medications include Xopenex as an inhaler and use of a nebulizer for relatively refractory shortness of breath, Serevent Diskus, as well as one tablet of azithromycin daily. With regard to the bronchiectasis, she has what sounds like maybe an exacerbation twice a year requiring the use of antibiotics. Receives immunoglobulin infusions every two weeks. ALLERGIES: CHART NOTES INDICATE ALLERGIES OF CEPHALOSPORINS, IBUPROFEN, IODINE, LATEX, OXYCODONE, TAPE, LEVOFLOXACIN, ASPIRIN, IMIPENEM, SEROTONIN ANTAGONISTS, SULFA, CILASTIN, NYLON, AND WOOL. REVIEW OF SYSTEMS: No cardiac issues. Does have occasional swelling in her legs. Does get occasional bladder infections. No GI complaints. SMOKING HISTORY: None. ALCOHOL: None. OBJECTIVE: Temperature 36.7, pulse 76, respiratory rate 16, blood pressure 121/75, O2 sat on 2 L is 97%. General appearance: Well-developed, well-nourished, cushingoid appearing female sitting with head of bed elevated about 70 degrees, in no acute distress. Speaking easily. The face shows a cushingoid appearance. Slightly saima skin. Slightly hirsute. Eyes: Conjunctivae are pink and moist. Nose: Moderate erythema. Some edema. Chest: Fairly good breath sounds bilaterally. There are some bibasilar crackles. No wheeze. No use of accessory muscles. Heart: Regular rhythm. Heart tones normal. Abdomen: Soft. Nondistended. Nontender. Extremities: No cyanosis or pretibial edema. Maybe some very early mild clubbing. Skin: No rashes. Has scars from avulsed skin lesions due to steroids. IMAGING: Chest x-ray is normal. Lung rivera are clear, though maybe some slight increased reticular nodular appearance to my eye. Unchanged from prior films. CT scan shows no evidence of pulmonary embolism. Has scattered subcentimeter pulmonary nodules in the upper lung rivera. ASSESSMENT: 1. Pulmonary nodules. Unable to ascertain their duration. Do not have old CT scans to compare. Chest x-ray looks relatively normal, with no particular change in the x-rays. Nodules are very likely infection, possibly related to old scarring from bronchiectasis. She was not in the [place] at any time. Did live in [facility] [place] a while. Does not particularly have the appearance of old coccidioidomycosis. No known exposure to histoplasmosis or tuberculosis. Atypical mycobacteria may be possible but I think at this point they are likely chronic from her multiple respiratory tract infections. I think the easiest approach would be to repeat the CT scan in six weeks if we think this is acute infectious process, possibly in 3-6 months if we think this is more chronic, to follow along with the nodules. Low risk for malignancy. 2. BiPAP. Long history obstructive sleep apnea. With BiPAP likely has underlying obesity hypoventilation syndrome as well. She has done well with her BiPAP. We cannot access the home BiPAP to evaluate settings but she has been doing comfortably well with them and has not had any particular change in respiratory status. Unrelated to respiratory tract infections, with her major difference being not wearing oxygen at night. If we can get O2 sat sats during the night while she is in the hospital that would be fine. Alternatively without an O2 recorder may have to depend on [facility], her durable medical supplier, to do a nocturnal O2 study on her with her BiPAP without supplemental oxygen. If she does need oxygen, then perhaps talking to [facility] about an oxygen delivery system that is less noisy might be in order. PLAN: 1. Would consider repeating a CT scan without contrast in 6-12 weeks to follow up nodules. 2. Nocturnal oxygen study to assess oxygen requirements at night. Thank you so much, Dr. Byrd, for asking the Pulmonary service to evaluate this most delightful and engaging individual.
--- NOTE | 2016-11-22 15:43 | NUR ---
Discharge Tim ramirez hospitalist r/t room air oxygen after walking in the hallway at 88% and pulse 119. oxygen at 1L with nasal cannula 93% with pulse 104. denies any sign and symptoms of respiratory distress.
--- NOTE | 2016-11-22 16:12 | NUR ---
RT Called RT per Dr. Suyapa Byrd r/t oxygen guidelines. per RT," medicare guidelines are 88% or above and 88 % is acceptable. Dr. Byrd aware.
--- NOTE | 2016-11-22 16:42 | PCM.DIMED ---
Discharge Instructions Date of Service Nov 22, 2016 Dates of Hospitalization Nov 20, 2016 at 22:45 Discharge Diagnosis Discharge Diagnosis Hypoxia, JOSELINE on BIPAP, COPD, CVID Diet Discharge Diet: Heart Healthy Activity Discharge Activity: No restrictions Call your provider Call your provider for: Fever or Chills, Shortness of breath, Bleeding, Chest pain, Vomitting, Excessive diarrhea, Weakness (unilateral), Other Patient Instructions Patient Instructions 1. Would consider repeating a CT scan without contrast in 6-12 weeks to follow up nodules. 2. Nocturnal oxygen study via [employer] to assess oxygen requirements at night. Follow-up plan F/U wiht PCP in one week We recommend PCP follows up as below: 1. Would consider repeating a CT scan without contrast in 6-12 weeks to follow up nodules. 2. Nocturnal oxygen study via [employer] to assess oxygen requirements at night. F/U with your outdoor studies director as previously arranged. Suyapa yBrd DO Nov 22, 2016 16:42
--- NOTE | 2016-11-22 17:47 | NUR ---
Discharge Patient walked in the hallway couple times with stable oxygen at room air saturating at 88-90% every time. BP 127/90, pulse 110 after walk in the [address], oxygen at 90% room air, temp 98.5. received orders for discharge home. Reviewed discharge instructions, discharge continuing prescriptions, follow up appointment that Dr. Chung's office will call patient to schedule the appointment per executive legal secretary and patient aware, care notes r/t hypoxia. patient received call from pharmacy that they will deliever antibiotic tonight per patient report. patient will be receiving IV infusion as ordered from [facility]. Called pharmacy number provided by [facility] [phone] to notify orders for IV ABO and pharmacy aware. Port cath patent. patient wants to eat before go home. denies pain or any discomfort. denies sign and symptoms of respiratory or cardiac distress. patient feels comfortable going home.
--- NOTE | 2016-11-22 18:23 | NUR ---
Discharge patient left unit approx [id number] accompained by nursing staff via wheel chair after eating dinner. stable oxygen at room air 90%. stable VS. Deneis pain or discomfort.
--- NOTE | 2016-11-23 01:05 | PCM.DC.MED ---
Discharge Summary Date of Service Nov 22, 2016 Dates of Hospitalization Date of Hospital Admission Nov 20, 2016 at 22:45 Date of Discharge: Nov 22, 2016 Providers: Admitting Physician: Tl Hitchcock MD Primary Care Physician: Richard Chung MD Attending Physician: Suyapa Byrd DO Diagnosis at Time of Discharge Diagnosis at Time of Discharge Hypoxia, JOSELINE on BIPAP, COPD, CVID Procedures XRay, CTs & MRIs PROCEDURE: X-RAY CHEST ONE VIEW, PORTABLE ([id number]) IMPRESSION: No acute disease. No interval change Dictated by: Abraham Montoya M.D. on 11/20/2016 at 19:05 [facility] Diagnostic Imaging Department [place], [place] [id number] Patient Name: KAMRON SAVAGE MR#: [id number] [place] [facility] [place] Phys: Tl Fernandez DO Date of Service: 11/21/16 0048 PROCEDURE: CT ANGIO CHEST PULMONARY EMBOLISM ([id number]) INDICATIONS: SOB, hypoxia, Dimer + IMPRESSION: 1. No central pulmonary embolism with evaluation of subsegmental branches limited due to motion artifact. 2. Multiple scattered pulmonary nodules predominantly within the right upper lobe. The findings are nonspecific but suggestive of an infectious or inflammatory process. Recommend a short term followup repeat study in 3-6 months to demonstrate resolution. 3. Postsurgical changes in the right axilla with associated dense collection likely representing a hematoma or seroma. Recommend correlation with clinical exam. 4. Small enhancing hypervascular lesion in the spleen is nonspecific and may represent a hemangioma. Recommend attention on followup. Dictated by: Jasvir Rizvi M.D. on 11/21/2016 at 13:27 Approved by: Jasvir Rizvi M.D. on 11/21/2016 at 13:37 ECG 12 Lead Sinus tachycardia . Abnormal R-wave progression, early transition Brief History Kamron Savage is a 46 year old female with a history of COPD, asthma, common variable immunodeficiency on meropenem x1 month, hypertension and chronic bronchitis who presents from urgent care to the ED due to hypoxia and suspicion of DVT/PE. She was at urgent care for right ear pain that has been present for 2 days, when they noticed O2 sat of 89%, lower than her baseline of 92%. She states that she does feel a little more short of breath today compared to usual but she hasn't used her rescue inhaler today. Of note, the patient has been immobilized from a tendinopathy secondary to quinolone use, which was discontinued about 2 days ago. She mentions she did have swelling in her legs about 6 weeks ago, but no longer has it. She has no prior history of DVT or PE. The patient denies fevers, chills, chest pain, pleuritic discomfort. She has had a cough with green sputum for the past month and has been taking antibiotics. The patient states that she feels like her symptoms are improving. In the ED she was found to be tachycardic with a pulse of 115, though she reports she typically at 105 bpm. WBC 12.7 on meropenem. D-dimer elevated at 0.7 , troponin normal. Chest x-ray was found to be unremarkable. CTA ordered, but patient iodine allergy with itching and hives. 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 Hypoxia, Present on Admission, Active Likely secondary to COPD. pulmonary embolism is ruled out with the chest CTA on 11/21. Her hypoxia does not appear to be real impressive as she was saturating 89% at the urgent care, she denies recent colds, coughs. She is currently being treated with meropenem IV as her cardiology nurse thought that she may have had pneumonia based on her clinical presentation, though first chest x-ray was negative in July. About to completed a month of meropenem. - Iodine allergy protocol initiated, then CTA - Patient recieved methylprednisolone at 2240 on 11/20/16 in ED. patient received 2 more doses at 0440, next one at 1040. - Patient has received a CTA as planned, she denies any side effects from the iodine contrast: "Multiple scattered pulmonary nodules predominantly within the right upper lobe. The findings are nonspecific but suggestive of an infectious or inflammatory process. Recommend a short term followup repeat study in 3-6 months to demonstrate resolution. Small enhancing hypervascular lesion in the spleen is nonspecific and may represent a hemangioma. Recommend attention on followup. " -- We consulted pulmonology, Dr. Ward recommends a 6-12 month follow up out patient, we appreciate his time and recommendations Common Variable Immunodeficiency, chronic - Patient on daily meropenem will continue -- Patient will need "continue IV antibiotics with [facility], ertapenem 1 g every 8H" the time of discharge, this order is put in -- Patient also may continue her azithromycin prophylaxis Chronic JOSELINE; stable - Usually on BiPAP, ordered - Patient is not using her BiPAP with oxygen as ordered. She is currently feeling more comfortable on oxygen here. -- I discussed the case with the potato chip fryer Dr. Ward who kindly agreed to see the patient and provide recommendations . -- He recommends an overnight oxygen/BiPAP study via [employer] to see if she would actually need oxygen -- She did a 6 minute walking saturation test, saturated 88%, she does not qualify for home oxygen around the clock saturating at>88% on room air at rest Incidental hemangioma on chest CT, present on admission -- We will recommend follow-up CT by PCP at the time of discharge Incidental finding of lung nodules on chest CT, present on admission -- We will recommend follow-up CT by PCP at the time of discharge Patient Status: Patient is admitted under observation status with expected length of stay less than 2 midnights due to severity of presenting symptoms and risk of adverse event. Patient will be discharged home 11/22, after pulmonology. Reports that recommendations regarding both the pulmonary nodules and a BiPAP Code Status: Full Code Exam Vital Signs (Last) Date Time Temp Pulse Resp B/P Pulse Ox O2 Delivery O2 Flow Rate FiO2 11/22/16 16:34 Supplement Oxygen 11/22/16 12:00 36.5 102 20 128/89 92 1.00 Exam General: No acute distress, well-developed, well-nourished, appropriately interactive HEENT: Normocephalic, atraumatic. Neck: Supple with full range of motion. No jugular venous distension. Cardiovascular: Normal rate and rhythm, no S3-S4 sounds Pulmonary: Dimished breath sounds, crackles are present on the right mid and lower sections Abdomen: Bowel tones present. Soft, nontender, nondistended. No hepatosplenomegaly or masses appreciated. Extremities: No clubbing, cyanosis, edema, or lymphadenopathy appreciated. Skin: Normal temperature Neurological: No focal deficit. Psychiatric: Normal mood and affect. Alert and oriented to person, place, and time. Test 11/20/16 15:34 11/20/16 19:40 11/20/16 23:15 11/21/16 23:15 D-Dimer 0.70mg/L FEU (<0.50) White Blood Count 12.7th/mm3 (3.8-10.1) Red Blood Count 4.69mil/mm3 (3.90-5.20) Hemoglobin 14.7g/dL (12.0-15.6) Hematocrit 45.7% (35.0-46.0) Mean Corpuscular Volume 97.4fL (81-100) Mean Corpuscular Hemoglobin 31.3pg (27.0-35.0) Mean Corpuscular Hemoglobin Concent 32.2% (32.0-37.0) Red Cell Distribution Width 15.6% (12.3-15.4) Platelet Count 502bil/L (150-400) Neutrophils (%) (Auto) 66.7% (40-74) Lymphocytes (%) (Auto) 20.8% (14-46) Monocytes (%) (Auto) 11.0% (4-12) Eosinophils (%) (Auto) 0.7% (0-5) Basophils (%) (Auto) 0.2% (0-3) Sodium Level 136mEq/L (134-144) Potassium Level 4.0mEq/L (3.5-5.2) Chloride Level 98mEq/L (97-108) Carbon Dioxide Level 24mmol/L (18-29) Blood Urea Nitrogen 14mg/dL (6-24) Creatinine 0.59mg/dL (0.57-1.00) Estimat Glomerular Filtration Rate 156mL/min (>59) Glucose Level 102mg/dL (60-99) Lactic Acid Level 2.0mmol/L (0.4-2.0) Calcium Level 9.2mg/dL (8.5-10.1) Total Bilirubin 0.2mg/dL (0.0-1.2) Aspartate Amino Transf (AST/SGOT) 27U/L (0-50) Alanine Aminotransferase (ALT/SGPT) 31U/L (0-32) Alkaline Phosphatase 86U/L (25-150) Troponin T < 0.010ug/L (0.0-0.011) Total Protein 7.9g/dL (6.4-8.4) Albumin 3.8g/dL (3.4-5.0) Urine Color Yellow (YELLOW) Urine Appearance Clear (CLEAR,HAZY) Urine pH 5.5 (5.0-8.0) Urine Specific [place] 1.020 (1.003-1.035) Urine Protein Negativemg/dL (NEG,TRACE) Urine Glucose (UA) Negativemg/dL (NEGATIVE) Urine Ketones Tracemg/dL (NEGATIVE) Urine Occult Blood Negative (NEGATIVE) Urine Nitrite Negative (NEGATIVE) Urine Bilirubin Negative (NEGATIVE) Urine Urobilinogen Normalmg/dL (NORMAL) Urine Leukocyte Esterase Negative (NEGATIVE) Urine RBC 0-2/hpf (0-2) Urine WBC 0-5/hpf (0-5) Urine Epithelial Cells Moderate/hpf (NONE-MOD) Urine Crystals Oxalic acid crystals (NONE Urine Bacteria Few/hpf (NONE-FEW) Urine Hyaline Casts Occasional/lpf (NONE) Urine Granular Casts None seen (NONE SEEN) Urine Waxy Casts None seen (NONE SEEN) Urine Red Blood Cell Casts None seen (NONE SEEN) Urine White Blood Cell Casts None seen (NONE SEEN) Urine Mucus Present (None Seen) Urine Trichomonas None seen (NONE SEEN) Urine Yeast None (NONE SEEN) Urinalysis Comment None Urine Culture Reflexed Not indicated Hold Urine Received (Received) Discharge Medications Discharge Medications ([immune globulin]) IV EVERY 2 WEEKS (Reported) Alendronate Sodium (Fosamax) 70 Mg Tablet 70 MG PO FRIDAY (Reported) Azelastine HCl (Astepro) 205.5 Mcg/0.137 Ml [place].pump 2 SPRAY NS BID (Reported ) Azithromycin (Zithromax) 250 Mg Tablet 250 MG PO DAILY (Reported) Buspirone (Buspirone) 30 Mg Tablet 30 MG PO BID (Reported) Clonazepam (Clonazepam) 1 Mg Tablet 1 MG PO HS (Reported) Duloxetine (Cymbalta) 60 Mg Capsule.dr 60 MG PO DAILY (Reported) Fluticasone Propionate (Flonase Allergy Relief) 50 Mcg/Actuation [place].susp 2 SPRAY NS BID (Reported) Fluticasone Propionate (Flovent HFA 220 mcg) 12 Gm Aer.w.adap 2 PUFFS IH BID ( Reported) Lurasidone (Latuda) 40 Mg Tablet 40 MG PO DAILY (Reported) Meropenem (Meropenem) 500 Mg Vial 1,000 MG IV TID (Reported) Olopatadine HCl (Pataday) 2.5 Ml Drops 1 DROP BOTH_EYES QAM (Reported) Pantoprazole DR (Protonix) 40 Mg Tablet 40 MG PO BEFORE DINNER (Reported) Salmeterol Xinafoate (Serevent Diskus) 50 Mcg/Puff Inhaler 1 PUFF IH BID ( Reported) Theophylline Anhydrous ER (Theophylline Anhydrous ER) 300 Mg Tab.er.12h 300 MG PO DAILY (Reported) Tiotropium [place] (Spiriva) 18 Mcg Cap.w.dev 18 MCG IH DAILY (Reported) Trazodone (Trazodone) 100 Mg Tablet 200 MG PO HS (Reported) As needed ([Benedryl]) 25-50 MG PO Q4-6H PRN PRN PRN (Reported) ([Sudafed 12HOUR]) 120 MG PO BID PRN PRN For Congestion (Reported) Acetaminophen (Acetaminophen) 500 Mg Tablet 1,000 MG PO TID PRN PRN For Pain ( Reported) Cetirizine HCl (Zyrtec) 10 Mg Capsule 10 MG PO HS PRN PRN For Congestion ( Reported) Levalbuterol HCl (Xopenex) 0.63 Mg/3 Ml Vial.neb 0.63 MG IH q4-6h PRN PRN For Shortness of Breath (Reported) Levalbuterol Tartrate (Xopenex Hfa) 15 Gm Hfa.aer.ad 2 PUFF IH Q4 PRN PRN For Shortness of Breath (Reported) Triamcinolone Acet (Triamcinolone Acetonide Ointment) 1 Applic/0.25 Gm Oint 1 APPLIC TP BID PRN PRN RASH (Reported) 0.05% Followup Plan Follow-up plan F/U wiht PCP in one week We recommend PCP follows up as below: 1. Would consider repeating a CT scan without contrast in 6-12 weeks to follow up nodules. 2. Nocturnal oxygen study via [employer] to assess oxygen requirements at night. F/U with your cardiology nurse as previously arranged. Discharge Diet: Heart Healthy Discharge Activity: No restrictions Patient Instructions 1. Would consider repeating a CT scan without contrast in 6-12 weeks to follow up nodules. 2. Nocturnal oxygen study via [employer] to assess oxygen requirements at night. Time spent 35 min Suyapa Byrd DO Nov 22, 2016 16:47
== END 2016-11-22 18:30 | disposition home or self-care (01) ==
LOC: SED 18:09 → MOC 22:45
PROVIDERS: ADMIT Hospitalist; ATTEND Family Medicine
DX: J44.9 Chronic obstructive pulmonary disease, unspecified (principal); R09.02 Hypoxemia; T38.0X5A Adverse effect of glucocorticoids and synthetic analogues, initial encounter; E24.2 Drug-induced Cushing's syndrome; T37.8X5A Adverse effect of other specified systemic anti-infectives and antiparasitics, initial encounter; M67.90 Unspecified disorder of synovium and tendon, unspecified site; G47.33 Obstructive sleep apnea (adult) (pediatric); R79.1 Abnormal coagulation profile; J45.909 Unspecified asthma, uncomplicated; K21.9 Gastro-esophageal reflux disease without esophagitis; F41.8 Other specified anxiety disorders; D83.9 Common variable immunodeficiency, unspecified; R91.8 Other nonspecific abnormal finding of lung field; D18.09 Hemangioma of other sites; F41.1 Generalized anxiety disorder; F32.9 Major depressive disorder, single episode, unspecified; Z85.3 Personal history of malignant neoplasm of breast; Z91.041 Radiographic dye allergy status
CPT/HCPCS: 36415; 71010; 71275; 80053; 81000; 83605; 84484; 85025; 85378; 93005; 94644; 96365; 96372; 96375; 99285; G0378; J1650; J2185; J2930; J7050; J7613; Q9967